=== PATIENT | female | born 1940 | race Caucasian/White ===

== ENCOUNTER 2019-08-30 14:00 | Emergency (ER) | payer MEDICARE ==
[~2019-08-30] VITALS: Ht 170.2 cm; Wt 100.7 kg
[2019-08-30 14:31] VITALS: BP 161/56
[2019-08-30] MEDS ORDERED: ACETAMINOPHEN 325 MG TAB PO ONE (17:45)
== END 2019-08-30 17:56 | disposition home or self-care (01) ==
LOC: ER 14:07
DX: S01.01XA Laceration without foreign body of scalp, initial encounter (principal); E78.5 Hyperlipidemia, unspecified; I10 Essential (primary) hypertension; Z88.1 Allergy status to other antibiotic agents; W19.XXXA Unspecified fall, initial encounter; Y93.89 Activity, other specified; Y99.8 Other external cause status; Y92.89 Other specified places as the place of occurrence of the external cause
CPT/HCPCS: 12002; 70450